=== PATIENT | male | born 1945 | race Caucasian/White ===

== ENCOUNTER → 2022-02-20 | Outpatient (CLI) | payer MEDICARE, BC ==
[~2022-02-20] MED LIST: ATE50T PO; LEVO25TA49 PO; LOSA-39 PO; METF-489 PO; SIMV10TA84 PO
[2022-02-20 09:57] LABS: Basophils % (auto) 0.6 % (0.0-2.0); Eosinophils % (auto) 2.5 % (0.0-7.0); Lymphocytes # (auto) 1.8 10 ^3/uL (0.4-5.4); Lymphocytes % (auto) 32.8 % (10.0-50.0); Monocytes # (auto) 0.6 10 ^3/uL (0-1.3); Monocytes % (auto) 10.4 % (0.0-12.0); Neutrophils # (auto) 2.9 10 ^3/uL (1.6-8.6); Neutrophils % (auto) 53.7 % (37.0-80.0); White Blood Cell 5.5 10^3/uL (4.4-10.8)
[2022-02-20 09:58] LABS: Basophils # (auto) 0 10 ^3/uL (0-0.2); Eosinophils # (auto) 0.1 10 ^3/uL (0-0.8); Hematocrit 40.1 % (41.0-53.0); Hemoglobin 13.2 g/dL (13.5-17.5); Mean Corpuscular Hemoglobin 30.3 pg (28.0-32.0); Mean Corpuscular Hgb Conc. 32.8 g/dL (32.0-36.0); Mean Corpuscular Volume 92.2 fL (80.0-100.0); Red Blood Cells 4.35 10^6/uL (4.5-5.90); Red Cell Distribution Width 13.8 % (11.8-14.3)
[2022-02-20 11:24] LABS: Potassium 3.9 mmol/L (3.5-5.1)
[2022-02-20 11:37] LABS: INR 0.96 (0.9-1.15); Partial Thromboplastin Time 26.8 sec (24.6-33.4)
[2022-02-20 11:51] LABS: BUN/Creatinine Ratio 21.2
[2022-02-20 14:05] LABS: Urine Bacteria MOD /hpf (None Seen); Urine Blood 1+ /uL (Negative); Urine Specific Gravity 1.017 (1.001-1.035); Urine WBC 474 /hpf (0 - 3); Urine WBC Clumps PRESENT /hpf (None Seen)
== END | disposition home or self-care (01) ==
LOC: LAB 09:34
PROVIDERS: ATTEND Urology
DX: Z01.812 Encounter for preprocedural laboratory examination (principal); M79.89 Other specified soft tissue disorders; D53.8 Other specified nutritional anemias; N39.0 Urinary tract infection, site not specified
CPT/HCPCS: 36415; 80048; 81001; 85025; 85610; 85730

== ENCOUNTER → 2022-02-23 | Day surgery (SDC) | payer MEDICARE, BC ==
[2022-02-20 09:56] LABS: Basophils # (auto) 0 10 ^3/uL (0-0.2); Basophils % (auto) 0.6 % (0.0-2.0); Eosinophils # (auto) 0.1 10 ^3/uL (0-0.8); Eosinophils % (auto) 2.5 % (0.0-7.0); Hematocrit 40.1 % (41.0-53.0); Hemoglobin 13.2 g/dL (13.5-17.5); Lymphocytes # (auto) 1.8 10 ^3/uL (0.4-5.4); Lymphocytes % (auto) 32.8 % (10.0-50.0); Mean Corpuscular Hemoglobin 30.3 pg (28.0-32.0); Mean Corpuscular Hgb Conc. 32.8 g/dL (32.0-36.0); Mean Corpuscular Volume 92.2 fL (80.0-100.0); Monocytes # (auto) 0.6 10 ^3/uL (0-1.3); Monocytes % (auto) 10.4 % (0.0-12.0); Neutrophils # (auto) 2.9 10 ^3/uL (1.6-8.6); Neutrophils % (auto) 53.7 % (37.0-80.0); Red Blood Cells 4.35 10^6/uL (4.5-5.90); Red Cell Distribution Width 13.8 % (11.8-14.3); White Blood Cell 5.5 10^3/uL (4.4-10.8)
[2022-02-20 11:15] LABS: INR 0.96 (0.9-1.15); Partial Thromboplastin Time 26.8 sec (24.6-33.4)
[2022-02-20 11:21] LABS: Potassium 3.8 mmol/L (3.5-5.1)
[2022-02-20 11:52] LABS: Albumin 3.6 g/dL (3.4-5.0); BUN/Creatinine Ratio 20.5; Bilirubin, Total 0.5 mg/dL (0.2-1.0); Calcium 9.2 mg/dL (8.5-10.1)
[2022-02-20 13:08] LABS: Urine Bacteria FEW /hpf (None Seen); Urine Blood 1+ /uL (Negative); Urine Specific Gravity 1.017 (1.001-1.035); Urine WBC 420 /hpf (0 - 3); Urine WBC Clumps PRESENT /hpf (None Seen)
[~2022-02-23] VITALS: Ht 177.8 cm; Wt 90.7 kg
[~2022-02-23] MED LIST changes: +CIPROFLOXACIN 400MG/200ML 200 ML IV ONE; +DexAMETHasone SOD PHOS 10MG/1ML VIAL INJ ONE; +GLYCOPYRROLATE 0.2 MG/ML 1ML VIAL ONE; +KETOROLAC TROMETH 30 MG/ML 1ML VIAL ONE; +LIDOCAINE 2%HCL (LOCAL ANESTH.) INJ 10ml MDV ONE; +ONDANSETRON HCL 4 MG/2 ML VIAL ONE; +PROPOFOL 10 MG/ML 20 ML IV ONE; +SODIUM CHLORIDE LOCK 10 ML ONE; +ePHEDrine SULFATE 50 MG/ML AMP ONE; +fentaNYL CITRATE 100 MCG/2 ML VL ONE
[2022-02-23 13:20] VITALS: BP 146/67
== END | disposition home or self-care (01) ==
LOC: SUR 07:09
PROVIDERS: ATTEND Urology
DX: N21.0 Calculus in bladder (principal); N30.00 Acute cystitis without hematuria; N30.20 Other chronic cystitis without hematuria; N32.89 Other specified disorders of bladder; E78.5 Hyperlipidemia, unspecified; E03.9 Hypothyroidism, unspecified; N40.1 Benign prostatic hyperplasia with lower urinary tract symptoms; D30.02 Benign neoplasm of left kidney; I10 Essential (primary) hypertension; E11.9 Type 2 diabetes mellitus without complications; Z87.891 Personal history of nicotine dependence; Z79.899 Other long term (current) drug therapy; Z79.84 Long term (current) use of oral hypoglycemic drugs; Z79.891 Long term (current) use of opiate analgesic; Z20.822 Contact with and (suspected) exposure to COVID-19
CPT/HCPCS: 36415; 51050; 52500; 80053; 81001; 82962; 85025; 85610; 85730; 87086; 87088; 87186; 88300; 88305; 88342; J0744; J1100; J1885; J2001; J2405; J2704; U0003